=== PATIENT | female | born 1960 | race Two or more races ===

== ENCOUNTER 2017-01-29 08:47 | Emergency (ER) | payer MEDICAID, OTHER ==
[~2017-01-29] VITALS: Ht 149.9 cm; Wt 97.5 kg
[~2017-01-29 08:47] MED LIST: DOC100C PO; FLUT250M2 INH; FURO20TA3 PO; GABA-497 PO; GEMF600T3 PO; HEPA50009 SUBCUT; INSUINJ; IPRASOL39 NEB; LIS5T PO; LORA-654 PO; MAGN400S25 PO; METO25TA62 PO; MONT10TA34 PO; NOR10T PO; OMEP20TA44 PO; PANT1INJ3 PO; PAR20T PO; POT20T PO; PRAV20TA3 PO; SENN-58 PO; SIMV-8 PO; SUCR1TAB38 PO; ZOLP5TAB5 PO
[2017-01-29 09:54] LABS: Basophils # (auto) 0.1 uL; Basophils % (auto) 0.5 % (0.0-2.0); Eosinophils # (auto) 0.2 uL; Eosinophils % (auto) 1.6 % (0.0-7.0); Hematocrit 40.1 % (36.0-46.0); Hemoglobin 13.9 g/dL (12.2-16.2); Lymphocytes # (auto) 1.8 uL; Lymphocytes % (auto) 12.3 % (10.0-50.0); Mean Corpuscular Hemoglobin 31.9 pg (28.0-32.0); Mean Corpuscular Hgb Conc. 34.6 g/dL (32.0-36.0); Mean Corpuscular Volume 92.3 fL (80.0-100.0); Mean Platelet Volume 8.1 fL (6.9-10.8); Monocytes # (auto) 0.9 uL; Monocytes % (auto) 6.2 % (0.0-12.0); Neutrophils # (auto) 11.5 uL; Neutrophils % (auto) 79.4 % (37.0-80.0); Platelet Count (auto) 259 10^3/uL (140-450); White Blood Cell 14.4 10^3/uL (4.4-10.8)
[2017-01-29 10:17] LABS: Albumin 3.3 g/dL (3.4-5.0); BUN/Creatinine Ratio 25.6; Bilirubin, Total 0.5 mg/dL (0.2-1.0); Calcium 8.8 mg/dL (8.5-10.1); Potassium 4.5 mmol/L (3.5-5.1); Total Protein 8.5 g/dL (6.4-8.2)
[2017-01-29 11:41] LABS: Urine Bilirubin Negative (Negative); Urine Blood Negative /uL (Negative); Urine Color Yellow (Yellow); Urine Glucose 4+ mg/dL (Normal); Urine Ketone 1+ (Negative); Urine Mucus FEW (None Seen); Urine Nitrite Negative (Negative); Urine RBC 1 /hpf (0 - 4); Urine Squamous Epithelial Cell FEW /hpf (<5); Urine pH 5.5 (5.0-8.0)
[2017-01-29] MEDS ORDERED: SODIUM CHLORIDE 0.9% 1,000 ML IVB ONE (12:18)
[2017-01-29] MEDS ORDERED: InsuLIN REG 1unit/0.01ml Soln (100units/ml) IV ONE (12:30)
[2017-01-29] MEDS ORDERED: ONDANSETRON HCL 4 MG/2 ML VIAL IV ONE (12:30)
[2017-01-29 12:53] LABS: Magnesium 1.5 mg/dL (1.6-2.6)
[2017-01-29 13:41] VITALS: BP 154/94
[2017-01-29] MEDS ORDERED: KETOROLAC TROMETH 30 MG/ML 1ML VIAL IV ONE (14:00)
== END 2017-01-29 14:15 | disposition home or self-care (01) ==
LOC: EDUNIT# 08:47 → EDBD 08:47 → ER 08:47
DX: A05.9 Bacterial foodborne intoxication, unspecified (principal); J44.9 Chronic obstructive pulmonary disease, unspecified; I25.10 Atherosclerotic heart disease of native coronary artery without angina pectoris; I11.0 Hypertensive heart disease with heart failure; I50.9 Heart failure, unspecified; E78.5 Hyperlipidemia, unspecified; E11.65 Type 2 diabetes mellitus with hyperglycemia; E66.01 Morbid (severe) obesity due to excess calories; E83.42 Hypomagnesemia; E44.1 Mild protein-calorie malnutrition; Z68.41 Body mass index [BMI] 40.0-44.9, adult
CPT/HCPCS: 36415; 74176; 80053; 81001; 82962; 83690; 83735; 84443; 85025; 93005; 96361; 96374; 96375; 99285; J1815; J1885; J2405; J7030

== ENCOUNTER 2017-10-18 22:06 | Inpatient (IN) | payer MEDICAID ==
[~2017-10-18] VITALS: Ht 149.9 cm; Wt 140.8 kg
[~2017-10-18 22:06] MED LIST changes: -GABA-497 PO; +GABA300C10 PO
[2017-10-19] MEDS ORDERED: NALBUPHINE HCL 10 MG/1ml INJECTION IV ONE (01:00)
[2017-10-19] MEDS ORDERED: ONDANSETRON HCL 4 MG/2 ML VIAL IV ONE (01:00)
[2017-10-19] MEDS ORDERED: cefTRIAXone 1GM/10ml IVPUSH 10 ML IV ONE (01:00)
[2017-10-19] MEDS ORDERED: VANCOMYCIN 1GM/250ML 250 ML IV ONE (01:00)
[2017-10-19 01:41] LABS: Basophils # (auto) 0 uL; Basophils % (auto) 0.5 % (0.0-2.0); Eosinophils # (auto) 0.3 uL; Eosinophils % (auto) 3.2 % (0.0-7.0); Hematocrit 38.6 % (36.0-46.0); Hemoglobin 13.3 g/dL (12.2-16.2); Lymphocytes # (auto) 2.8 uL; Lymphocytes % (auto) 36.2 % (10.0-50.0); Mean Corpuscular Hgb Conc. 34.5 g/dL (32.0-36.0); Mean Corpuscular Volume 95.5 fL (80.0-100.0); Monocytes # (auto) 0.5 uL; Monocytes % (auto) 6.8 % (0.0-12.0); Neutrophils # (auto) 4.2 uL; Neutrophils % (auto) 53.3 % (37.0-80.0); Nucleated Red Blood Cells % 0.1 %; Platelet Count (auto) 190 10^3/uL (140-450); Red Blood Cells 4.04 10^6/uL (4.0-5.20); Red Cell Distribution Width 14.8 % (11.8-14.3); White Blood Cell 7.8 10^3/uL (4.4-10.8)
[2017-10-19 01:53] LABS: INR 1.07 (0.9-1.15); Partial Thromboplastin Time 27.4 sec (23.78-33.04); Prothrombin Time 11.4 sec (9.27-12.13)
[2017-10-19 01:58] LABS: Alanine Aminotransferase 56 U/L (13-56); Albumin 2.9 g/dL (3.4-5.0); Anion Gap 8 (5-15); Aspartate Aminotransferase 56 U/L (15-37); BUN/Creatinine Ratio 18.1; Blood Urea Nitrogen 13 mg/dL (7-18); Calcium 7.7 mg/dL (8.5-10.1); Carbon Dioxide 26 mmol/L (21-32); Chloride 109 mmol/L (98-107); GFR African American 107 mL/min; GFR Non-African American 89 mL/min; Glucose 150 mg/dL (74-106); Potassium 3.4 mmol/L (3.5-5.1); Sodium 143 mmol/L (136-145)
[2017-10-19] MEDS ORDERED: FLUCONAZOLE 200MG/100ML 100 ML IV ONE (02:00)
[2017-10-19 02:03] LABS: Alkaline Phosphatase 163 U/L (45-117); Bilirubin, Total 0.5 mg/dL (0.2-1.0); Total Protein 7.5 g/dL (6.4-8.2)
[2017-10-19] MEDS ORDERED: DEXTROSE (50%) 50ML SYRG IV PRN (03:45)
[2017-10-19] MEDS ORDERED: HYDROcodone-ACET 5/325MG TAB PO PRN (03:45)
[2017-10-19] MEDS ORDERED: DOCUSATE SOD 100 MG CAP PO PRN (03:45)
[2017-10-19 05:30] VITALS: BP 159/73
[2017-10-19] MEDS: ACCU-CHEK COMFORT CURVE STRIP VI SCH ×4 (06:00→23:34)
[2017-10-19] MEDS: CLINDAMYCIN 600MG IV 50 ML IV SCH ×3 (06:40→23:04)
[2017-10-19] MEDS: InsuLIN REG 1unit/0.01ml Soln (100units/ml) SC SCH ×4 (06:41→23:46)
[2017-10-19 09:00] VITALS: BP 143/72
[2017-10-19] MEDS: FUROSEMIDE 20 MG TAB PO SCH (10:00)
[2017-10-19] MEDS ORDERED: KETOCONAZOLE 2 % TOPICAL CREAM 15GM TOP SCH (10:00)
[2017-10-19] MEDS ORDERED: PROMETHAZINE HCL 25 MG/ML 1ML IV PRN (10:30)
[2017-10-19] MEDS: MORPHINE SULFATE 4 MG/ML SYR/VIAL IV PRN ×4 (10:51→23:35)
[2017-10-19] MEDS: PARoxetine 20 MG TAB PO SCH (11:42)
[2017-10-19] MEDS: GEMFIBROZIL 600 MG TAB PO SCH (11:42)
[2017-10-19] MEDS: PANTOPRAZOLE 40 MG TAB PO SCH (11:43)
[2017-10-19] MEDS: FAMOTIDINE 20 MG TAB PO SCH ×2 (11:43→23:04)
[2017-10-19] MEDS: METOPROLOL SUCCINATE XL 50 MG TAB PO SCH (11:44)
[2017-10-19] MEDS: LISINOPRIL 5 MG TAB PO SCH (11:45)
[2017-10-19] MEDS: ENOXAPARIN SOD 40 MG/0.4 ML SYRINGE SC SCH (11:45)
[2017-10-19 13:00] VITALS: BP 142/68
[2017-10-19] MEDS ORDERED: NYSTATIN TOPICAL POWDER 15GM TOP ONE (13:30)
[2017-10-19] MEDS ORDERED: POTASSIUM CHL 20 Meq TABLET PO ONE (13:30)
[2017-10-19] MEDS: PROMETHAZINE HCL 25 MG/ML 1ML IV PRN ×3 (15:00→23:35)
[2017-10-19 16:59] VITALS: BP 114/63
[2017-10-19 20:10] VITALS: BP 154/85
[2017-10-19 22:00] VITALS: BP 154/85
[2017-10-19] MEDS ORDERED: NYSTATIN TOPICAL POWDER 15GM TOP SCH (22:00)
[2017-10-19] MEDS: MONTELUKAST SODIUM 10 MG TAB PO SCH (23:04)
[2017-10-19] MEDS: PRAVASTATIN SODIUM 20 MG TAB PO SCH (23:04)
[2017-10-20] MEDS: PROMETHAZINE HCL 25 MG/ML 1ML IV PRN ×5 (03:45→21:46)
[2017-10-20] MEDS: MORPHINE SULFATE 4 MG/ML SYR/VIAL IV PRN ×2 (03:45→07:56)
[2017-10-20 05:00] VITALS: BP 118/54
[2017-10-20 05:54] LABS: Basophils # (auto) 0.1 uL; Basophils % (auto) 0.6 % (0.0-2.0); Eosinophils # (auto) 0.3 uL; Hematocrit 41.9 % (36.0-46.0); Hemoglobin 13.7 g/dL (12.2-16.2); Lymphocytes # (auto) 2.1 uL; Lymphocytes % (auto) 22.1 % (10.0-50.0); Mean Corpuscular Hemoglobin 31.9 pg (28.0-32.0); Mean Corpuscular Hgb Conc. 32.6 g/dL (32.0-36.0); Mean Corpuscular Volume 97.6 fL (80.0-100.0); Monocytes # (auto) 0.3 uL; Monocytes % (auto) 3.2 % (0.0-12.0); Neutrophils # (auto) 6.8 uL; Neutrophils % (auto) 71.1 % (37.0-80.0); Platelet Count (auto) 224 10^3/uL (140-450); Red Blood Cells 4.29 10^6/uL (4.0-5.20); Red Cell Distribution Width 15.1 % (11.8-14.3); White Blood Cell 9.5 10^3/uL (4.4-10.8)
[2017-10-20] MEDS: ACCU-CHEK COMFORT CURVE STRIP VI SCH ×3 (06:00→18:00)
[2017-10-20] MEDS: InsuLIN REG 1unit/0.01ml Soln (100units/ml) SC SCH ×3 (06:00→18:00)
[2017-10-20] MEDS: CLINDAMYCIN 600MG IV 50 ML IV SCH ×3 (06:00→23:25)
[2017-10-20 06:05] LABS: Albumin 2.5 g/dL (3.4-5.0); BUN/Creatinine Ratio 8.8; Bilirubin, Total 0.7 mg/dL (0.2-1.0); Calcium 7.5 mg/dL (8.5-10.1); Potassium 3.9 mmol/L (3.5-5.1)
[2017-10-20 09:00] VITALS: BP 120/77
[2017-10-20] MEDS ORDERED: cefTRIAXone 1GM/10ml IVPUSH 10 ML IV SCH (09:00)
[2017-10-20] MEDS: diphenhdrAMINE HCL 50 MG/1 ML VL IV PRN ×2 (09:17→19:56)
[2017-10-20] MEDS: FUROSEMIDE 20 MG TAB PO SCH (10:00)
[2017-10-20] MEDS: POTASSIUM CHL 20 Meq TABLET PO SCH (10:00)
[2017-10-20] MEDS: FAMOTIDINE 20 MG TAB PO SCH (10:00)
[2017-10-20] MEDS: ENOXAPARIN SOD 40 MG/0.4 ML SYRINGE SC SCH (10:00)
[2017-10-20] MEDS: PARoxetine 20 MG TAB PO SCH (10:03)
[2017-10-20] MEDS: PANTOPRAZOLE 40 MG TAB PO SCH (10:03)
[2017-10-20] MEDS: GEMFIBROZIL 600 MG TAB PO SCH (10:03)
[2017-10-20] MEDS: METOPROLOL SUCCINATE XL 50 MG TAB PO SCH (10:04)
[2017-10-20] MEDS: LISINOPRIL 5 MG TAB PO SCH (10:05)
[2017-10-20] MEDS: NYSTATIN TOPICAL POWDER 15GM TOP SCH ×3 (10:12→23:25)
[2017-10-20] MEDS: NALBUPHINE HCL 10 MG/1ml INJECTION IV PRN ×3 (12:24→21:46)
[2017-10-20 13:00] VITALS: BP 109/60
[2017-10-20 17:00] VITALS: BP 95/45
[2017-10-20] MEDS: PRAVASTATIN SODIUM 20 MG TAB PO SCH (21:45)
[2017-10-20] MEDS: MONTELUKAST SODIUM 10 MG TAB PO SCH (21:46)
[2017-10-20 21:49] VITALS: BP 109/55
[2017-10-21] MEDS: InsuLIN REG 1unit/0.01ml Soln (100units/ml) SC SCH ×4 (00:11→17:41)
[2017-10-21] MEDS: ACCU-CHEK COMFORT CURVE STRIP VI SCH ×4 (00:11→17:41)
[2017-10-21] MEDS: diphenhdrAMINE HCL 50 MG/1 ML VL IV PRN ×3 (03:15→19:48)
[2017-10-21] MEDS: NALBUPHINE HCL 10 MG/1ml INJECTION IV PRN ×4 (03:15→19:48)
[2017-10-21 05:00] VITALS: BP 97/52
[2017-10-21] MEDS: PROMETHAZINE HCL 25 MG/ML 1ML IV PRN ×2 (05:20→17:41)
[2017-10-21] MEDS: CLINDAMYCIN 600MG IV 50 ML IV SCH ×3 (05:54→22:23)
[2017-10-21] MEDS: NYSTATIN TOPICAL POWDER 15GM TOP SCH ×3 (06:09→22:24)
[2017-10-21 08:00] VITALS: BP 103/56
[2017-10-21 08:10] LABS: Basophils # (auto) 0.1 uL; Basophils % (auto) 0.5 % (0.0-2.0); Eosinophils # (auto) 0.6 uL; Eosinophils % (auto) 3.4 % (0.0-7.0); Hematocrit 42.5 % (36.0-46.0); Hemoglobin 14.3 g/dL (12.2-16.2); Lymphocytes # (auto) 3.1 uL; Lymphocytes % (auto) 17.6 % (10.0-50.0); Mean Corpuscular Hemoglobin 32.4 pg (28.0-32.0); Mean Corpuscular Hgb Conc. 33.5 g/dL (32.0-36.0); Mean Corpuscular Volume 96.6 fL (80.0-100.0); Monocytes # (auto) 0.8 uL; Monocytes % (auto) 4.8 % (0.0-12.0); Neutrophils # (auto) 13.1 uL; Neutrophils % (auto) 73.7 % (37.0-80.0); Platelet Count (auto) 254 10^3/uL (140-450); Red Blood Cells 4.41 10^6/uL (4.0-5.20); Red Cell Distribution Width 15.5 % (11.8-14.3); White Blood Cell 17.7 10^3/uL (4.4-10.8)
[2017-10-21 08:28] LABS: BUN/Creatinine Ratio 11.3; Calcium 7.3 mg/dL (8.5-10.1); Potassium 3.9 mmol/L (3.5-5.1)
[2017-10-21] MEDS ORDERED: cefTRIAXone 1GM/10ml IVPUSH 10 ML IV SCH (09:00)
[2017-10-21] MEDS: POTASSIUM CHL 20 Meq TABLET PO SCH (10:00)
[2017-10-21] MEDS: METOPROLOL SUCCINATE XL 50 MG TAB PO SCH (10:00)
[2017-10-21] MEDS: ENOXAPARIN SOD 40 MG/0.4 ML SYRINGE SC SCH ×2 (10:00→22:00)
[2017-10-21] MEDS: FUROSEMIDE 20 MG TAB PO SCH (10:00)
[2017-10-21] MEDS: LISINOPRIL 5 MG TAB PO SCH (10:00)
[2017-10-21] MEDS: GEMFIBROZIL 600 MG TAB PO SCH (10:12)
[2017-10-21] MEDS: PARoxetine 20 MG TAB PO SCH (10:12)
[2017-10-21] MEDS: PANTOPRAZOLE 40 MG TAB PO SCH (10:12)
[2017-10-21] MEDS ORDERED: SODIUM CHLORIDE 0.9% 1,000 ML IV ONE (10:30)
[2017-10-21 12:00] VITALS: BP 100/51
[2017-10-21 17:00] VITALS: BP 95/49
[2017-10-21] MEDS: ACETAMINOPHEN 325 MG TAB PO PRN (19:49)
[2017-10-21 22:00] VITALS: BP 120/58
[2017-10-21] MEDS: PRAVASTATIN SODIUM 20 MG TAB PO SCH (22:23)
[2017-10-21] MEDS: MONTELUKAST SODIUM 10 MG TAB PO SCH (22:24)
[2017-10-22] MEDS: NALBUPHINE HCL 10 MG/1ml INJECTION IV PRN ×6 (00:06→22:29)
[2017-10-22] MEDS: ACCU-CHEK COMFORT CURVE STRIP VI SCH ×5 (00:06→23:09)
[2017-10-22] MEDS: InsuLIN REG 1unit/0.01ml Soln (100units/ml) SC SCH ×5 (00:06→23:12)
[2017-10-22] MEDS: diphenhdrAMINE HCL 50 MG/1 ML VL IV PRN ×2 (00:46→16:34)
[2017-10-22 05:00] VITALS: BP 113/51
[2017-10-22] MEDS: CLINDAMYCIN 600MG IV 50 ML IV SCH ×3 (06:36→22:00)
[2017-10-22] MEDS: NYSTATIN TOPICAL POWDER 15GM TOP SCH (06:36)
[2017-10-22] MEDS: ACETAMINOPHEN 325 MG TAB PO PRN (06:37)
[2017-10-22] MEDS: PROMETHAZINE HCL 25 MG/ML 1ML IV PRN (06:49)
[2017-10-22 07:46] LABS: Basophils # (auto) 0 uL; Basophils % (auto) 0.2 % (0.0-2.0); Eosinophils # (auto) 0.8 uL; Eosinophils % (auto) 5.2 % (0.0-7.0); Hematocrit 37.8 % (36.0-46.0); Hemoglobin 12.7 g/dL (12.2-16.2); Lymphocytes # (auto) 2.4 uL; Lymphocytes % (auto) 15.8 % (10.0-50.0); Mean Corpuscular Hemoglobin 32.7 pg (28.0-32.0); Mean Corpuscular Hgb Conc. 33.6 g/dL (32.0-36.0); Mean Corpuscular Volume 97.4 fL (80.0-100.0); Monocytes # (auto) 0.9 uL; Monocytes % (auto) 5.6 % (0.0-12.0); Neutrophils # (auto) 11.2 uL; Neutrophils % (auto) 73.2 % (37.0-80.0); Platelet Count (auto) 204 10^3/uL (140-450); Red Blood Cells 3.88 10^6/uL (4.0-5.20); Red Cell Distribution Width 15.5 % (11.8-14.3); White Blood Cell 15.3 10^3/uL (4.4-10.8)
[2017-10-22 07:48] LABS: Urine Bacteria NONE SEEN /hpf (None Seen); Urine Blood Negative /uL (Negative); Urine Specific Gravity 1.012 (1.001-1.035); Urine WBC 8 /hpf (0 - 5)
[2017-10-22 07:53] LABS: BUN/Creatinine Ratio 15.2; Potassium 3.7 mmol/L (3.5-5.1)
[2017-10-22 09:00] VITALS: BP 101/43
[2017-10-22] MEDS ORDERED: methylPREDNISolone ACETATE 80 MG/ML VL IM ONE (09:45)
[2017-10-22] MEDS: ENOXAPARIN SOD 40 MG/0.4 ML SYRINGE SC SCH ×2 (10:00→22:00)
[2017-10-22] MEDS: METOPROLOL SUCCINATE XL 50 MG TAB PO SCH (10:00)
[2017-10-22] MEDS: LISINOPRIL 5 MG TAB PO SCH (10:00)
[2017-10-22] MEDS: PANTOPRAZOLE 40 MG TAB PO SCH (11:27)
[2017-10-22] MEDS: GEMFIBROZIL 600 MG TAB PO SCH (11:27)
[2017-10-22] MEDS: FEXOFENADINE HCL 60 MG TAB PO SCH ×2 (11:27→22:29)
[2017-10-22] MEDS: PARoxetine 20 MG TAB PO SCH (11:28)
[2017-10-22] MEDS: TRIAMCINOLONE ACET0.5% TOPICAL CRE 15GM TOP SCH ×2 (11:29→22:40)
[2017-10-22] MEDS: NYSTATIN TOPICAL CREAM 15GM TOP SCH ×2 (11:29→22:40)
[2017-10-22] MEDS ORDERED: ALBUTEROL SULF 2.5 MG/0.5ML(0.5%) NEB SOLN NEB PRN (12:00)
[2017-10-22 13:00] VITALS: BP 144/69
[2017-10-22] MEDS ORDERED: FLUCONAZOLE 200MG/100ML 100 ML IV ONE (15:00)
[2017-10-22 16:35] VITALS: BP 103/54
[2017-10-22 22:00] VITALS: BP 107/60
[2017-10-22] MEDS: PRAVASTATIN SODIUM 20 MG TAB PO SCH (22:29)
[2017-10-22] MEDS: MONTELUKAST SODIUM 10 MG TAB PO SCH (22:29)
[2017-10-22 23:34] VITALS: BP 107/60
[2017-10-23] MEDS: diphenhdrAMINE HCL 50 MG/1 ML VL IV PRN ×3 (01:44→17:13)
[2017-10-23] MEDS: NALBUPHINE HCL 10 MG/1ml INJECTION IV PRN ×6 (02:54→23:55)
[2017-10-23 05:00] VITALS: BP 115/58
[2017-10-23] MEDS: CLINDAMYCIN 600MG IV 50 ML IV SCH ×3 (05:26→21:23)
[2017-10-23] MEDS: ACCU-CHEK COMFORT CURVE STRIP VI SCH ×5 (05:26→23:47)
[2017-10-23] MEDS: InsuLIN REG 1unit/0.01ml Soln (100units/ml) SC SCH ×4 (05:27→23:47)
[2017-10-23 08:00] VITALS: BP 118/58
[2017-10-23 08:26] VITALS: BP 118/58
[2017-10-23] MEDS ORDERED: DEXTROSE (50%) 50ML SYRG IV PRN ×2 (09:00→23:15)
[2017-10-23] MEDS: FEXOFENADINE HCL 60 MG TAB PO SCH ×2 (09:13→21:23)
[2017-10-23] MEDS: PARoxetine 20 MG TAB PO SCH (09:14)
[2017-10-23] MEDS: METOPROLOL SUCCINATE XL 50 MG TAB PO SCH (09:14)
[2017-10-23] MEDS: LISINOPRIL 5 MG TAB PO SCH (09:14)
[2017-10-23] MEDS: PANTOPRAZOLE 40 MG TAB PO SCH (09:14)
[2017-10-23] MEDS: FLUCONAZOLE 200MG/100ML 100 ML IV SCH (09:15)
[2017-10-23] MEDS: NYSTATIN TOPICAL CREAM 15GM TOP SCH ×2 (09:15→22:26)
[2017-10-23] MEDS: TRIAMCINOLONE ACET0.5% TOPICAL CRE 15GM TOP SCH ×2 (09:15→22:26)
[2017-10-23] MEDS: ENOXAPARIN SOD 40 MG/0.4 ML SYRINGE SC SCH ×2 (09:15→21:24)
[2017-10-23] MEDS: GEMFIBROZIL 600 MG TAB PO SCH (10:21)
[2017-10-23 10:22] LABS: Basophils # (auto) 0 uL; Basophils % (auto) 0.1 % (0.0-2.0); Eosinophils # (auto) 0.1 uL; Hematocrit 37.8 % (36.0-46.0); Hemoglobin 12.4 g/dL (12.2-16.2); Lymphocytes # (auto) 1.7 uL; Lymphocytes % (auto) 13.2 % (10.0-50.0); Mean Corpuscular Hemoglobin 31.7 pg (28.0-32.0); Mean Corpuscular Hgb Conc. 32.9 g/dL (32.0-36.0); Mean Corpuscular Volume 96.3 fL (80.0-100.0); Monocytes # (auto) 0.6 uL; Monocytes % (auto) 4.5 % (0.0-12.0); Neutrophils # (auto) 10.4 uL; Neutrophils % (auto) 81.2 % (37.0-80.0); Platelet Count (auto) 203 10^3/uL (140-450); Red Blood Cells 3.92 10^6/uL (4.0-5.20); Red Cell Distribution Width 15.3 % (11.8-14.3); White Blood Cell 12.8 10^3/uL (4.4-10.8)
[2017-10-23 10:43] LABS: BUN/Creatinine Ratio 12.7; Calcium 7.9 mg/dL (8.5-10.1)
[2017-10-23] MEDS: methylPREDNISolone SOD SUCC 40 MG/ML VL IV SCH ×3 (11:50→23:46)
[2017-10-23 11:58] VITALS: BP 126/58
[2017-10-23 16:13] VITALS: BP 130/71
[2017-10-23] MEDS: PRAVASTATIN SODIUM 20 MG TAB PO SCH (21:23)
[2017-10-23] MEDS: MONTELUKAST SODIUM 10 MG TAB PO SCH (21:23)
[2017-10-23 22:00] VITALS: BP 137/71
[2017-10-23] MEDS ORDERED: InsuLIN REG 1unit/0.01ml Soln (100units/ml) SC SCH (22:00)
[2017-10-24] MEDS: ACCU-CHEK COMFORT CURVE STRIP VI SCH ×5 (03:25→20:49)
[2017-10-24] MEDS: diphenhdrAMINE HCL 50 MG/1 ML VL IV PRN ×2 (03:25→13:14)
[2017-10-24] MEDS: InsuLIN REG 1unit/0.01ml Soln (100units/ml) SC SCH ×5 (03:32→20:48)
[2017-10-24] MEDS: NALBUPHINE HCL 10 MG/1ml INJECTION IV PRN ×5 (04:04→20:49)
[2017-10-24 05:00] VITALS: BP 129/64
[2017-10-24] MEDS: CLINDAMYCIN 600MG IV 50 ML IV SCH (05:04)
[2017-10-24] MEDS: methylPREDNISolone SOD SUCC 40 MG/ML VL IV SCH ×2 (05:09→17:16)
[2017-10-24 05:51] LABS: Basophils # (auto) 0 uL; Basophils % (auto) 0.1 % (0.0-2.0); Eosinophils # (auto) 0 uL; Hematocrit 36.1 % (36.0-46.0); Hemoglobin 12.3 g/dL (12.2-16.2); Lymphocytes # (auto) 1.6 uL; Lymphocytes % (auto) 15.2 % (10.0-50.0); Mean Corpuscular Hemoglobin 33.1 pg (28.0-32.0); Mean Corpuscular Hgb Conc. 34.2 g/dL (32.0-36.0); Mean Corpuscular Volume 96.9 fL (80.0-100.0); Monocytes # (auto) 0.2 uL; Monocytes % (auto) 2.3 % (0.0-12.0); Neutrophils # (auto) 8.9 uL; Neutrophils % (auto) 82.4 % (37.0-80.0); Platelet Count (auto) 202 10^3/uL (140-450); Red Blood Cells 3.73 10^6/uL (4.0-5.20); Red Cell Distribution Width 15.2 % (11.8-14.3); White Blood Cell 10.8 10^3/uL (4.4-10.8)
[2017-10-24 06:05] LABS: BUN/Creatinine Ratio 17.6; Calcium 8.4 mg/dL (8.5-10.1); Potassium 3.7 mmol/L (3.5-5.1)
[2017-10-24 08:00] VITALS: BP 131/67
[2017-10-24 09:00] VITALS: BP 131/67
[2017-10-24] MEDS: FLUCONAZOLE 200MG/100ML 100 ML IV SCH (09:14)
[2017-10-24] MEDS: hydrOXYzine 25 MG TAB or CAP PO PRN ×2 (09:15→17:16)
[2017-10-24] MEDS: FEXOFENADINE HCL 60 MG TAB PO SCH ×2 (09:15→22:45)
[2017-10-24] MEDS: PANTOPRAZOLE 40 MG TAB PO SCH (09:15)
[2017-10-24] MEDS: LISINOPRIL 5 MG TAB PO SCH (09:16)
[2017-10-24] MEDS: PARoxetine 20 MG TAB PO SCH (09:16)
[2017-10-24] MEDS: METOPROLOL SUCCINATE XL 50 MG TAB PO SCH (09:16)
[2017-10-24] MEDS: ENOXAPARIN SOD 40 MG/0.4 ML SYRINGE SC SCH ×2 (09:16→22:00)
[2017-10-24] MEDS ORDERED: NALBUPHINE HCL 10 MG/1ml INJECTION IV PRN (09:30)
[2017-10-24] MEDS: NYSTATIN TOPICAL CREAM 15GM TOP SCH ×2 (09:39→22:49)
[2017-10-24] MEDS: GEMFIBROZIL 600 MG TAB PO SCH (09:39)
[2017-10-24] MEDS: TRIAMCINOLONE ACET0.5% TOPICAL CRE 15GM TOP SCH ×2 (09:39→22:49)
[2017-10-24] MEDS: CALAMINE TOPical LOTION180 ML TOP PRN (11:52)
[2017-10-24] MEDS ORDERED: INSULIN LANTUS (GLARGINE) 1 /0.01ml (100units/ml) SC ONE (12:45)
[2017-10-24 15:44] VITALS: BP 138/96
[2017-10-24 17:35] VITALS: BP 134/69
[2017-10-24 21:55] VITALS: BP 143/69
[2017-10-24] MEDS: FAMOTIDINE 20 MG TAB PO SCH (22:47)
[2017-10-24] MEDS: MONTELUKAST SODIUM 10 MG TAB PO SCH (22:48)
[2017-10-24] MEDS: PRAVASTATIN SODIUM 20 MG TAB PO SCH (22:48)
[2017-10-24] MEDS: INSULIN LANTUS (GLARGINE) 1 /0.01ml (100units/ml) SC SCH (22:49)
[2017-10-25] MEDS: NALBUPHINE HCL 10 MG/1ml INJECTION IV PRN ×3 (00:50→09:14)
[2017-10-25] MEDS: hydrOXYzine 25 MG TAB or CAP PO PRN ×2 (01:00→21:25)
[2017-10-25] MEDS: InsuLIN REG 1unit/0.01ml Soln (100units/ml) SC SCH ×6 (01:29→20:31)
[2017-10-25] MEDS: ACCU-CHEK COMFORT CURVE STRIP VI SCH ×6 (01:29→20:31)
[2017-10-25 05:48] VITALS: BP 138/66
[2017-10-25] MEDS: methylPREDNISolone SOD SUCC 40 MG/ML VL IV SCH ×2 (06:41→17:16)
[2017-10-25] MEDS: INSULIN LANTUS (GLARGINE) 1 /0.01ml (100units/ml) SC SCH ×2 (06:41→21:27)
[2017-10-25] MEDS: diphenhdrAMINE HCL 50 MG/1 ML VL IV PRN ×2 (07:29→18:09)
[2017-10-25 08:00] VITALS: BP 136/70
[2017-10-25 09:04] VITALS: BP 136/70
[2017-10-25] MEDS: FEXOFENADINE HCL 60 MG TAB PO SCH ×2 (09:14→21:25)
[2017-10-25] MEDS: PARoxetine 20 MG TAB PO SCH (09:14)
[2017-10-25] MEDS: LISINOPRIL 5 MG TAB PO SCH (09:14)
[2017-10-25] MEDS: NYSTATIN TOPICAL CREAM 15GM TOP SCH ×2 (09:15→21:26)
[2017-10-25] MEDS: TRIAMCINOLONE ACET0.5% TOPICAL CRE 15GM TOP SCH ×2 (09:15→21:26)
[2017-10-25] MEDS: FLUCONAZOLE 200MG/100ML 100 ML IV SCH (09:15)
[2017-10-25] MEDS: METOPROLOL SUCCINATE XL 50 MG TAB PO SCH ×2 (09:15→12:46)
[2017-10-25] MEDS: GEMFIBROZIL 600 MG TAB PO SCH (09:15)
[2017-10-25] MEDS: ENOXAPARIN SOD 40 MG/0.4 ML SYRINGE SC SCH ×2 (09:16→21:27)
[2017-10-25] MEDS: FAMOTIDINE 20 MG TAB PO SCH ×2 (09:16→21:25)
[2017-10-25] MEDS: FLUCONAZOLE 100 MG TAB PO SCH (09:36)
[2017-10-25] MEDS: CALAMINE TOPical LOTION180 ML TOP PRN ×2 (09:37→17:51)
[2017-10-25] MEDS ORDERED: ALUM & MAG HYDROX-SIMETH LIQ(MAALOX) 30 ML GT PRN (10:00)
[2017-10-25] MEDS: MORPHINE SULFATE 4 MG/ML SYR/VIAL IV PRN ×3 (12:45→21:26)
[2017-10-25 13:05] VITALS: BP 148/74
[2017-10-25 17:43] VITALS: BP 162/79
[2017-10-25] MEDS: MONTELUKAST SODIUM 10 MG TAB PO SCH (21:25)
[2017-10-25] MEDS: PRAVASTATIN SODIUM 20 MG TAB PO SCH (21:25)
[2017-10-25 22:00] VITALS: BP 136/72
[2017-10-25] MEDS ORDERED: INSULIN LANTUS (GLARGINE) 1 /0.01ml (100units/ml) SC SCH (22:00)
[2017-10-26] MEDS: ACCU-CHEK COMFORT CURVE STRIP VI SCH ×4 (00:52→12:23)
[2017-10-26] MEDS: InsuLIN REG 1unit/0.01ml Soln (100units/ml) SC SCH ×5 (00:52→12:29)
[2017-10-26] MEDS: MORPHINE SULFATE 4 MG/ML SYR/VIAL IV PRN ×2 (02:00→06:40)
[2017-10-26 02:44] VITALS: BP 136/72
[2017-10-26 04:51] VITALS: BP 147/74
[2017-10-26] MEDS: methylPREDNISolone SOD SUCC 40 MG/ML VL IV SCH (06:40)
[2017-10-26] MEDS: hydrOXYzine 25 MG TAB or CAP PO PRN (06:41)
[2017-10-26] MEDS: INSULIN LANTUS (GLARGINE) 1 /0.01ml (100units/ml) SC SCH (07:06)
[2017-10-26 07:50] VITALS: BP 179/71
[2017-10-26] MEDS: FEXOFENADINE HCL 60 MG TAB PO SCH (08:28)
[2017-10-26] MEDS: FLUCONAZOLE 100 MG TAB PO SCH (08:28)
[2017-10-26] MEDS: GEMFIBROZIL 600 MG TAB PO SCH (08:29)
[2017-10-26] MEDS: PARoxetine 20 MG TAB PO SCH (08:30)
[2017-10-26] MEDS: FAMOTIDINE 20 MG TAB PO SCH (08:30)
[2017-10-26] MEDS: LISINOPRIL 5 MG TAB PO SCH (08:30)
[2017-10-26] MEDS: ENOXAPARIN SOD 40 MG/0.4 ML SYRINGE SC SCH (08:33)
[2017-10-26] MEDS: METOPROLOL SUCCINATE XL 50 MG TAB PO SCH (09:24)
[2017-10-26] MEDS ORDERED: metFORMIN HYDROCHLORIDE 500 MG TAB PO ONE (10:15)
[2017-10-26] MEDS ORDERED: TRI05TP TOP (10:17)
[2017-10-26 11:33] VITALS: BP 179/71
[2017-10-26] MEDS ORDERED: HYDROcodone-ACET 10/325MG TAB PO ONE (11:45)
[2017-10-26 12:35] VITALS: BP 162/66
== END 2017-10-26 14:40 | disposition home health service (06) | DRG 383 ==
LOC: ER 22:23 → CENTRAL 22:24
PROVIDERS: ADMIT Nurse Practitioner; ATTEND Internal Medicine
DX: L03.115 Cellulitis of right lower limb (principal); I11.0 Hypertensive heart disease with heart failure; E44.0 Moderate protein-calorie malnutrition; Z68.44 Body mass index [BMI] 60.0-69.9, adult; I50.9 Heart failure, unspecified; E11.65 Type 2 diabetes mellitus with hyperglycemia; J44.9 Chronic obstructive pulmonary disease, unspecified; B37.2 Candidiasis of skin and nail; J45.909 Unspecified asthma, uncomplicated; T78.49XA Other allergy, initial encounter; L03.116 Cellulitis of left lower limb; E66.01 Morbid (severe) obesity due to excess calories; Z88.1 Allergy status to other antibiotic agents; Z88.8 Allergy status to other drugs, medicaments and biological substances; E03.9 Hypothyroidism, unspecified; E78.5 Hyperlipidemia, unspecified; Z83.3 Family history of diabetes mellitus; Z82.49 Family history of ischemic heart disease and other diseases of the circulatory system; Z82.3 Family history of stroke; Z79.4 Long term (current) use of insulin; L03.313 Cellulitis of chest wall; K21.9 Gastro-esophageal reflux disease without esophagitis; Z87.442 Personal history of urinary calculi; T38.0X5A Adverse effect of glucocorticoids and synthetic analogues, initial encounter; Y92.89 Other specified places as the place of occurrence of the external cause; X58.XXXA Exposure to other specified factors, initial encounter; Z90.49 Acquired absence of other specified parts of digestive tract; Z86.14 Personal history of Methicillin resistant Staphylococcus aureus infection; Z80.9 Family history of malignant neoplasm, unspecified; E87.6 Hypokalemia
CPT/HCPCS: 36415; 71045; 80048; 80053; 81001; 82962; 83036; 84484; 85025; 85610; 85652; 85730; 87040; 87081; 87086; 93005; 97110; 97116; 97163; 97530; A6257; J0696; J1450; J1815; J3490

== ENCOUNTER 2017-12-11 16:21 | Emergency (ER) | payer MEDICAID ==
[~2017-12-11] VITALS: Ht 149.9 cm; Wt 136.1 kg
[~2017-12-11 16:21] MED LIST changes: -DOC100C PO; -FLUT250M2 INH; -FURO20TA3 PO; -GEMF600T3 PO; -HEPA50009 SUBCUT; -INSUINJ; -LORA-654 PO; -MAGN400S25 PO; -OMEP20TA44 PO; -PANT1INJ3 PO; -POT20T PO; -PRAV20TA3 PO; -SENN-58 PO; -SIMV-8 PO; -SUCR1TAB38 PO; +TRI05TP TOP; -ZOLP5TAB5 PO
[2017-12-11 16:29] VITALS: BP 145/82
[2017-12-11] MEDS ORDERED: KETOROLAC TROMETH 60MG/2ML VIAL IM ONE (19:15)
== END 2017-12-11 19:52 | disposition home or self-care (01) ==
LOC: ER 16:21
DX: S01.01XA Laceration without foreign body of scalp, initial encounter (principal); J44.9 Chronic obstructive pulmonary disease, unspecified; E11.22 Type 2 diabetes mellitus with diabetic chronic kidney disease; I13.0 Hypertensive heart and chronic kidney disease with heart failure and stage 1 through stage 4 chronic kidney disease, or unspecified chronic kidney disease; I50.9 Heart failure, unspecified; N18.9 Chronic kidney disease, unspecified; K21.9 Gastro-esophageal reflux disease without esophagitis; E78.5 Hyperlipidemia, unspecified; E07.9 Disorder of thyroid, unspecified; Z90.49 Acquired absence of other specified parts of digestive tract; Z88.1 Allergy status to other antibiotic agents; Z88.8 Allergy status to other drugs, medicaments and biological substances; Z79.899 Other long term (current) drug therapy; W20.8XXA Other cause of strike by thrown, projected or falling object, initial encounter; Y93.89 Activity, other specified; Y99.8 Other external cause status; Y92.098 Other place in other non-institutional residence as the place of occurrence of the external cause
CPT/HCPCS: 12031; 70450; 96372; 99284; J1885

== ENCOUNTER 2017-12-20 15:13 | Emergency (ER) | payer MEDICAID ==
[~2017-12-20] VITALS: Ht 149.9 cm; Wt 136.1 kg
[2017-12-20 15:37] VITALS: BP 156/85
== END 2017-12-20 16:00 | disposition home or self-care (01) ==
LOC: ER 15:18
DX: S01.81XD Laceration without foreign body of other part of head, subsequent encounter (principal); E11.22 Type 2 diabetes mellitus with diabetic chronic kidney disease; I13.0 Hypertensive heart and chronic kidney disease with heart failure and stage 1 through stage 4 chronic kidney disease, or unspecified chronic kidney disease; N18.9 Chronic kidney disease, unspecified; J44.9 Chronic obstructive pulmonary disease, unspecified; K21.9 Gastro-esophageal reflux disease without esophagitis; E78.5 Hyperlipidemia, unspecified; X58.XXXD Exposure to other specified factors, subsequent encounter; Z90.49 Acquired absence of other specified parts of digestive tract; Z88.1 Allergy status to other antibiotic agents

== ENCOUNTER 2018-02-27 10:22 | Inpatient (IN) | payer MEDICAID ==
[~2018-02-27] VITALS: Ht 160 cm; Wt 145.0 kg
[2018-02-27] MEDS ORDERED: SODIUM CHLORIDE 0.9% 1,000 ML IV ONE (10:37)
[2018-02-27] MEDS ORDERED: HYDROmorphone HCL 2 MG/ML VL IV ONE ×2 (10:45→13:45)
[2018-02-27] MEDS ORDERED: PROMETHAZINE HCL 25 MG/ML 1ML ONE (11:27)
[2018-02-27] MEDS ORDERED: PROMETHAZINE HCL 25 MG/ML 1ML IM ONE (11:30)
[2018-02-27 12:00] LABS: Basophils # (auto) 0 uL; Basophils % (auto) 0.3 % (0.0-2.0); Eosinophils # (auto) 0.1 uL; Eosinophils % (auto) 1.1 % (0.0-7.0); Hematocrit 48.4 % (36.0-46.0); Hemoglobin 15.8 g/dL (12.2-16.2); Lymphocytes # (auto) 1.9 uL; Lymphocytes % (auto) 16.4 % (10.0-50.0); Mean Corpuscular Hemoglobin 30.8 pg (28.0-32.0); Mean Corpuscular Hgb Conc. 32.7 g/dL (32.0-36.0); Mean Corpuscular Volume 94.3 fL (80.0-100.0); Monocytes # (auto) 0.6 uL; Monocytes % (auto) 5.1 % (0.0-12.0); Neutrophils # (auto) 9.1 uL; Neutrophils % (auto) 77.1 % (37.0-80.0); Platelet Count (auto) 156 10^3/uL (140-450); Red Blood Cells 5.13 10^6/uL (4.0-5.20); Red Cell Distribution Width 14.3 % (11.8-14.3); White Blood Cell 11.7 10^3/uL (4.4-10.8)
[2018-02-27 12:16] LABS: INR 1.11 (0.9-1.15); Partial Thromboplastin Time 24.4 sec (23.78-33.04); Prothrombin Time 11.8 sec (9.27-12.13)
[2018-02-27 14:37] LABS: Calcium 9.3 mg/dL (8.5-10.1); Magnesium 1.8 mg/dL (1.6-2.6)
[2018-02-27 14:44] LABS: Albumin 3.4 g/dL (3.4-5.0); BUN/Creatinine Ratio 14.9; Bilirubin, Total 0.7 mg/dL (0.2-1.0); Total Protein 7.8 g/dL (6.4-8.2)
[2018-02-27] MEDS ORDERED: InsuLIN REG 1unit/0.01ml Soln (100units/ml) IV ONE (15:00)
[2018-02-27] MEDS ORDERED: ONDANSETRON HCL 4 MG/2 ML VIAL IV PRN (15:45)
[2018-02-27] MEDS ORDERED: NITROGLYCERIN 0.4 MG SL TAB SL PRN (15:45)
[2018-02-27] MEDS ORDERED: IPRATROPIUM BROM 0.5 MG/2.5ML INH SOL NEB PRN (15:45)
[2018-02-27] MEDS ORDERED: MORPHINE SULFATE 4 MG/ML SYR/VIAL IV PRN (15:45)
[2018-02-27] MEDS ORDERED: ALBUTEROL SULF 2.5 MG/0.5ML(0.5%) NEB SOLN NEB PRN (15:45)
[2018-02-27] MEDS ORDERED: DEXTROSE (50%) 50ML SYRG IV PRN (15:45)
[2018-02-27] MEDS ORDERED: SODIUM CHLORIDE 0.9% 1,000 ML IV SCH ×2 (15:45→16:00)
[2018-02-27 16:18] LABS: CRP High Sensitivity 1.73 mg/dL (< 0.3)
[2018-02-27] MEDS: ACCU-CHEK COMFORT CURVE STRIP VI SCH ×2 (17:15→22:00)
[2018-02-27] MEDS: InsuLIN REG 1unit/0.01ml Soln (100units/ml) SC SCH ×2 (17:30→22:00)
[2018-02-27] MEDS ORDERED: cefTRIAXone 1GM/50ML D5W 50 ML IV SCH (18:00)
[2018-02-27] MEDS: IPRATROPIUM BROM 0.5 MG/2.5ML INH SOL NEB SCH (18:00)
[2018-02-27] MEDS: ALBUTEROL SULF 2.5 MG/0.5ML(0.5%) NEB SOLN NEB SCH (18:00)
[2018-02-27] MEDS: MORPHINE SULFATE 4 MG/ML SYR/VIAL IV PRN ×2 (19:27→23:49)
[2018-02-27 19:44] VITALS: BP 131/75
[2018-02-27 21:30] VITALS: BP 132/52
[2018-02-27] MEDS: GABAPENTIN 300 MG CAP PO SCH (21:35)
[2018-02-27] MEDS: HYDROcodone-ACET 10/325MG TAB PO PRN (21:35)
[2018-02-27] MEDS: NYSTATIN TOPICAL POWDER 15GM TOP SCH (22:36)
[2018-02-28] MEDS: MORPHINE SULFATE 4 MG/ML SYR/VIAL IV PRN ×5 (03:49→21:47)
[2018-02-28 05:00] VITALS: BP 155/66
[2018-02-28] MEDS: ALBUTEROL SULF 2.5 MG/0.5ML(0.5%) NEB SOLN NEB SCH ×4 (06:00→18:00)
[2018-02-28] MEDS: IPRATROPIUM BROM 0.5 MG/2.5ML INH SOL NEB SCH ×4 (06:00→18:00)
[2018-02-28] MEDS: GABAPENTIN 300 MG CAP PO SCH ×3 (06:05→21:44)
[2018-02-28] MEDS: HYDROcodone-ACET 10/325MG TAB PO PRN (06:05)
[2018-02-28] MEDS: ACCU-CHEK COMFORT CURVE STRIP VI SCH ×4 (06:28→21:46)
[2018-02-28] MEDS: InsuLIN REG 1unit/0.01ml Soln (100units/ml) SC SCH ×4 (06:41→21:58)
[2018-02-28 08:23] VITALS: BP 130/73
[2018-02-28] MEDS: PARoxetine 20 MG TAB PO SCH (08:44)
[2018-02-28] MEDS: LISINOPRIL 5 MG TAB PO SCH (08:45)
[2018-02-28] MEDS: MONTELUKAST SODIUM 10 MG TAB PO SCH (08:45)
[2018-02-28] MEDS: NYSTATIN TOPICAL POWDER 15GM TOP SCH ×2 (11:00→22:00)
[2018-02-28 11:45] LABS: Basophils # (auto) 0.1 uL; Basophils % (auto) 0.5 % (0.0-2.0); Eosinophils # (auto) 0.2 uL; Eosinophils % (auto) 1.5 % (0.0-7.0); Hematocrit 41.8 % (36.0-46.0); Lymphocytes # (auto) 3.7 uL; Lymphocytes % (auto) 25.1 % (10.0-50.0); Mean Corpuscular Hemoglobin 30.9 pg (28.0-32.0); Mean Corpuscular Hgb Conc. 33.4 g/dL (32.0-36.0); Mean Corpuscular Volume 92.5 fL (80.0-100.0); Monocytes # (auto) 0.4 uL; Monocytes % (auto) 2.9 % (0.0-12.0); Neutrophils # (auto) 10.2 uL; Platelet Count (auto) 165 10^3/uL (140-450); Red Blood Cells 4.52 10^6/uL (4.0-5.20); Red Cell Distribution Width 14.1 % (11.8-14.3); White Blood Cell 14.6 10^3/uL (4.4-10.8)
[2018-02-28 12:01] LABS: Albumin 2.7 g/dL (3.4-5.0); Calcium 7.9 mg/dL (8.5-10.1); Potassium 4.1 mmol/L (3.5-5.1)
[2018-02-28 12:04] LABS: BUN/Creatinine Ratio 13.4; Bilirubin, Total 0.9 mg/dL (0.2-1.0); Total Protein 6.8 g/dL (6.4-8.2)
[2018-02-28 13:01] VITALS: BP 141/65
[2018-02-28 16:41] VITALS: BP 137/57
[2018-02-28 21:17] LABS: Urine Bacteria NONE SEEN /hpf (None Seen); Urine Blood Negative /uL (Negative); Urine Budding Yeast FEW /hpf (None Seen); Urine Specific Gravity 1.035 (1.001-1.035); Urine WBC 5 /hpf (0 - 5)
[2018-02-28 22:00] VITALS: BP 129/61
[2018-02-28] MEDS ORDERED: INSULIN LANTUS (GLARGINE) 1 /0.01ml (100units/ml) SC SCH (22:00)
[2018-02-28] MEDS: CLOTRIMAZOLE 1 % CREAM 15GM TOP SCH (22:00)
[2018-03-01] MEDS: MORPHINE SULFATE 4 MG/ML SYR/VIAL IV PRN ×5 (02:18→20:10)
[2018-03-01 05:19] VITALS: BP 110/59
[2018-03-01] MEDS: IPRATROPIUM BROM 0.5 MG/2.5ML INH SOL NEB SCH ×4 (06:00→18:00)
[2018-03-01] MEDS: ALBUTEROL SULF 2.5 MG/0.5ML(0.5%) NEB SOLN NEB SCH ×4 (06:00→18:00)
[2018-03-01] MEDS: GABAPENTIN 300 MG CAP PO SCH ×3 (06:03→22:17)
[2018-03-01] MEDS: ACCU-CHEK COMFORT CURVE STRIP VI SCH ×4 (06:04→22:19)
[2018-03-01] MEDS: InsuLIN REG 1unit/0.01ml Soln (100units/ml) SC SCH ×4 (06:19→22:46)
[2018-03-01 08:52] VITALS: BP_SYST 126; BP_SYST 130; BP_DIAS 66; BP_DIAS 67
[2018-03-01] MEDS: PARoxetine 20 MG TAB PO SCH ×2 (09:49→10:01)
[2018-03-01] MEDS: MONTELUKAST SODIUM 10 MG TAB PO SCH (09:56)
[2018-03-01] MEDS: CLOTRIMAZOLE 1 % CREAM 15GM TOP SCH ×2 (09:57→22:18)
[2018-03-01] MEDS: LISINOPRIL 5 MG TAB PO SCH (09:57)
[2018-03-01] MEDS: NYSTATIN TOPICAL POWDER 15GM TOP SCH ×2 (09:57→22:18)
[2018-03-01] MEDS ORDERED: MORPHINE SULFATE 4 MG/ML SYR/VIAL IM ONE (11:30)
[2018-03-01] MEDS ORDERED: LACTULOSE 20Gm/30ML SOLN PO ONE (11:30)
[2018-03-01] MEDS ORDERED: PANTOPRAZOLE 40 MG TAB PO ONE (12:45)
[2018-03-01 12:52] VITALS: BP 130/58
[2018-03-01 16:59] VITALS: BP 142/64
[2018-03-01 21:30] VITALS: BP 133/65
[2018-03-01] MEDS: PANTOPRAZOLE 40 MG TAB PO SCH (22:18)
[2018-03-01] MEDS: INSULIN LANTUS (GLARGINE) 1 /0.01ml (100units/ml) SC SCH (22:45)
[2018-03-02] MEDS: MORPHINE SULFATE 4 MG/ML SYR/VIAL IV PRN ×6 (03:28→23:10)
[2018-03-02 05:01] VITALS: BP 125/74
[2018-03-02] MEDS: GABAPENTIN 300 MG CAP PO SCH ×3 (06:00→21:00)
[2018-03-02] MEDS: InsuLIN REG 1unit/0.01ml Soln (100units/ml) SC SCH ×4 (07:00→23:57)
[2018-03-02] MEDS: ACCU-CHEK COMFORT CURVE STRIP VI SCH ×4 (07:07→23:57)
[2018-03-02 09:00] VITALS: BP 150/69
[2018-03-02] MEDS ORDERED: MIDAZOLAM HCL 1MG/1ML-2 ML VIAL ONE ×2 (09:47→09:49)
[2018-03-02] MEDS ORDERED: PROPOFOL 10 MG/ML 20 ML IV ONE (09:48)
[2018-03-02] MEDS ORDERED: LIDOCAINE 1% INJ PF 5ML AMP ONE (09:48)
[2018-03-02] MEDS ORDERED: diphenhdrAMINE HCL 50 MG/1 ML VL ONE (09:54)
[2018-03-02] MEDS: NYSTATIN TOPICAL POWDER 15GM TOP SCH ×2 (10:00→23:58)
[2018-03-02] MEDS: CLOTRIMAZOLE 1 % CREAM 15GM TOP SCH ×2 (10:00→22:00)
[2018-03-02] MEDS: PARoxetine 20 MG TAB PO SCH (10:00)
[2018-03-02] MEDS: LISINOPRIL 5 MG TAB PO SCH (10:00)
[2018-03-02] MEDS: PANTOPRAZOLE 40 MG TAB PO SCH ×2 (10:00→21:00)
[2018-03-02] MEDS ORDERED: ACCU-CHEK COMFORT CURVE STRIP VI ONE (10:15)
[2018-03-02] MEDS ORDERED: HYDROmorphone HCL 2 MG/ML VL IV PRN (10:15)
[2018-03-02] MEDS: MONTELUKAST SODIUM 10 MG TAB PO SCH (11:12)
[2018-03-02] MEDS: TETRAHYDROZOLINE HCL 0.05% OPTH(EYE)SOL EACHEYE SCH ×3 (12:29→23:56)
[2018-03-02 13:00] VITALS: BP 120/82
[2018-03-02 16:38] VITALS: BP 116/86
[2018-03-02] MEDS: IPRATROPIUM BROM 0.5 MG/2.5ML INH SOL NEB SCH ×3 (18:00→23:58)
[2018-03-02] MEDS: ALBUTEROL SULF 2.5 MG/0.5ML(0.5%) NEB SOLN NEB SCH ×3 (18:00→23:58)
[2018-03-02] MEDS: HYDROcodone-ACET 10/325MG TAB PO PRN (19:35)
[2018-03-02 20:27] VITALS: BP 116/86
[2018-03-02 21:50] VITALS: BP 128/82
[2018-03-02] MEDS: INSULIN LANTUS (GLARGINE) 1 /0.01ml (100units/ml) SC SCH (23:57)
[2018-03-03] MEDS: HYDROcodone-ACET 10/325MG TAB PO PRN ×3 (00:11→17:25)
[2018-03-03] MEDS: MORPHINE SULFATE 4 MG/ML SYR/VIAL IV PRN ×4 (03:08→19:58)
[2018-03-03 05:06] VITALS: BP 140/72
[2018-03-03] MEDS: IPRATROPIUM BROM 0.5 MG/2.5ML INH SOL NEB SCH ×3 (06:00→19:07)
[2018-03-03] MEDS: ALBUTEROL SULF 2.5 MG/0.5ML(0.5%) NEB SOLN NEB SCH ×3 (06:00→19:07)
[2018-03-03] MEDS: ACCU-CHEK COMFORT CURVE STRIP VI SCH ×4 (06:08→21:20)
[2018-03-03] MEDS: TETRAHYDROZOLINE HCL 0.05% OPTH(EYE)SOL EACHEYE SCH ×4 (06:08→21:20)
[2018-03-03] MEDS: GABAPENTIN 300 MG CAP PO SCH ×3 (06:08→21:20)
[2018-03-03] MEDS: InsuLIN REG 1unit/0.01ml Soln (100units/ml) SC SCH ×4 (06:09→21:21)
[2018-03-03 08:29] VITALS: BP 121/65
[2018-03-03] MEDS: PANTOPRAZOLE 40 MG TAB PO SCH ×2 (09:58→21:20)
[2018-03-03] MEDS: PARoxetine 20 MG TAB PO SCH (09:58)
[2018-03-03] MEDS: CLOTRIMAZOLE 1 % CREAM 15GM TOP SCH ×3 (09:59→21:21)
[2018-03-03] MEDS: LISINOPRIL 5 MG TAB PO SCH (09:59)
[2018-03-03] MEDS: MONTELUKAST SODIUM 10 MG TAB PO SCH (09:59)
[2018-03-03] MEDS: NYSTATIN TOPICAL POWDER 15GM TOP SCH ×3 (09:59→21:22)
[2018-03-03 13:00] VITALS: BP 132/82
[2018-03-03] MEDS ORDERED: POLYETHYLENE GLYCOL 17 GM PWDR PO PRN (14:00)
[2018-03-03 16:32] VITALS: BP 129/80
[2018-03-03] MEDS: INSULIN LANTUS (GLARGINE) 1 /0.01ml (100units/ml) SC SCH (21:21)
[2018-03-03 22:00] VITALS: BP 148/81
[2018-03-04] MEDS: MORPHINE SULFATE 4 MG/ML SYR/VIAL IV PRN ×3 (00:10→09:38)
[2018-03-04] MEDS: ALBUTEROL SULF 2.5 MG/0.5ML(0.5%) NEB SOLN NEB SCH (01:00)
[2018-03-04] MEDS: IPRATROPIUM BROM 0.5 MG/2.5ML INH SOL NEB SCH (01:00)
[2018-03-04] MEDS: HYDROcodone-ACET 10/325MG TAB PO PRN ×2 (02:12→12:36)
[2018-03-04 05:02] VITALS: BP 142/95
[2018-03-04] MEDS: TETRAHYDROZOLINE HCL 0.05% OPTH(EYE)SOL EACHEYE SCH ×2 (05:56→13:13)
[2018-03-04] MEDS: GABAPENTIN 300 MG CAP PO SCH ×2 (05:56→14:00)
[2018-03-04] MEDS: ACCU-CHEK COMFORT CURVE STRIP VI SCH ×2 (06:00→13:13)
[2018-03-04] MEDS: InsuLIN REG 1unit/0.01ml Soln (100units/ml) SC SCH ×2 (06:09→13:12)
[2018-03-04 09:01] VITALS: BP 125/70
[2018-03-04] MEDS: PARoxetine 20 MG TAB PO SCH (09:36)
[2018-03-04] MEDS: PANTOPRAZOLE 40 MG TAB PO SCH (09:36)
[2018-03-04] MEDS: LISINOPRIL 5 MG TAB PO SCH (09:37)
[2018-03-04] MEDS: MONTELUKAST SODIUM 10 MG TAB PO SCH (09:37)
[2018-03-04] MEDS: CLOTRIMAZOLE 1 % CREAM 15GM TOP SCH (12:36)
[2018-03-04] MEDS: NYSTATIN TOPICAL POWDER 15GM TOP SCH (12:37)
[2018-03-04 13:00] VITALS: BP 114/75
[2018-03-04 13:54] VITALS: BP 114/75
== END 2018-03-04 15:26 | disposition home or self-care (01) | DRG 241 ==
LOC: EDBD 10:22 → ER 10:22 → OVERFLOW 15:40 → CENTRAL 20:41
PROVIDERS: ADMIT Nurse Practitioner Acute Care; ATTEND Internal Medicine Pulmonary Disease
PROC: 0DB68ZX Excision of Stomach, Via Natural or Artificial Opening Endoscopic, Diagnostic (ICD-10-PCS; principal; 2018-03-02 09:44)
DX: K29.70 Gastritis, unspecified, without bleeding (principal); E44.0 Moderate protein-calorie malnutrition; I11.0 Hypertensive heart disease with heart failure; E11.65 Type 2 diabetes mellitus with hyperglycemia; Z99.81 Dependence on supplemental oxygen; I50.32 Chronic diastolic (congestive) heart failure; E66.01 Morbid (severe) obesity due to excess calories; K52.9 Noninfective gastroenteritis and colitis, unspecified; J44.9 Chronic obstructive pulmonary disease, unspecified; K21.9 Gastro-esophageal reflux disease without esophagitis; K59.00 Constipation, unspecified; L30.4 Erythema intertrigo; H10.9 Unspecified conjunctivitis; E87.1 Hypo-osmolality and hyponatremia; N39.0 Urinary tract infection, site not specified; Z90.49 Acquired absence of other specified parts of digestive tract; Z68.43 Body mass index [BMI] 50.0-59.9, adult; Z88.1 Allergy status to other antibiotic agents; Z88.8 Allergy status to other drugs, medicaments and biological substances
CPT/HCPCS: 36415; 43239; 71045; 74176; 80053; 80061; 81001; 82150; 82962; 83036; 83690; 83735; 84443; 85025; 85610; 85652; 85730; 86141; 87077; 87081; 87186; 87205; 93005; 94640; 94761; 96372; 96374; 96375; 96376; G0378; J0696; J1815; J2250; J2704

== ENCOUNTER 2018-06-07 08:26 | Emergency (ER) | payer MEDICAID ==
[~2018-06-07] VITALS: Ht 149.9 cm; Wt 113.4 kg
[2018-06-07 10:46] LABS: Basophils # (auto) 0 uL; Basophils % (auto) 0.4 % (0.0-2.0); Eosinophils # (auto) 0.2 uL; Eosinophils % (auto) 3.4 % (0.0-7.0); Hematocrit 41.3 % (36.0-46.0); Hemoglobin 13.8 g/dL (12.2-16.2); Lymphocytes # (auto) 2.3 uL; Lymphocytes % (auto) 39.3 % (10.0-50.0); Mean Corpuscular Hemoglobin 30.7 pg (28.0-32.0); Mean Corpuscular Hgb Conc. 33.3 g/dL (32.0-36.0); Mean Corpuscular Volume 92.2 fL (80.0-100.0); Monocytes # (auto) 0.5 uL; Monocytes % (auto) 7.7 % (0.0-12.0); Neutrophils # (auto) 2.9 uL; Neutrophils % (auto) 49.2 % (37.0-80.0); Platelet Count (auto) 184 10^3/uL (140-450); Red Blood Cells 4.48 10^6/uL (4.0-5.20); Red Cell Distribution Width 15.5 % (11.8-14.3); White Blood Cell 5.8 10^3/uL (4.4-10.8)
[2018-06-07 10:58] LABS: Alanine Aminotransferase 67 U/L (13-56); Albumin 2.9 g/dL (3.4-5.0); Anion Gap 8 (5-15); Aspartate Aminotransferase 61 U/L (15-37); BUN/Creatinine Ratio 6.3; Blood Urea Nitrogen 4 mg/dL (7-18); Calcium 8.4 mg/dL (8.5-10.1); Carbon Dioxide 25 mmol/L (21-32); Chloride 105 mmol/L (98-107); GFR African American 125 mL/min; GFR Non-African American 103 mL/min; Glucose 270 mg/dL (74-106); Magnesium 1.7 mg/dL (1.6-2.6); Potassium 3.3 mmol/L (3.5-5.1); Sodium 138 mmol/L (136-145)
[2018-06-07 11:03] LABS: Alkaline Phosphatase 230 U/L (45-117); Bilirubin, Total 0.6 mg/dL (0.2-1.0); Total Protein 7.4 g/dL (6.4-8.2)
[2018-06-07] MEDS ORDERED: ASPirin 81 mg TAB PO ONE (12:00)
[2018-06-07] MEDS ORDERED: NITROGLYCERIN 0.4 MG SL TAB SL ONE (12:00)
[2018-06-07 13:15] VITALS: BP 156/84
== END 2018-06-07 13:35 | disposition home or self-care (01) ==
LOC: ER 08:26 → EDBD 08:26 → ER 13:35
DX: R07.89 Other chest pain (principal); J44.9 Chronic obstructive pulmonary disease, unspecified; K21.9 Gastro-esophageal reflux disease without esophagitis; E11.22 Type 2 diabetes mellitus with diabetic chronic kidney disease; I13.0 Hypertensive heart and chronic kidney disease with heart failure and stage 1 through stage 4 chronic kidney disease, or unspecified chronic kidney disease; N18.9 Chronic kidney disease, unspecified; I50.9 Heart failure, unspecified; Z90.49 Acquired absence of other specified parts of digestive tract; Z87.442 Personal history of urinary calculi; Z88.1 Allergy status to other antibiotic agents; Z79.899 Other long term (current) drug therapy
CPT/HCPCS: 36415; 71045; 80053; 83735; 84484; 85025; 93005

== ENCOUNTER 2018-07-01 18:08 | Inpatient (IN) | payer MEDICAID ==
[~2018-07-01] VITALS: Ht 149.9 cm; Wt 137.9 kg
[2018-07-01] MEDS ORDERED: ALBUTEROL SULF 2.5 MG/0.5ML(0.5%) NEB SOLN NEB ONE (18:30)
[2018-07-01] MEDS ORDERED: IPRATROPIUM BROM 0.5 MG/2.5ML INH SOL NEB ONE (18:30)
[2018-07-01] MEDS ORDERED: SODIUM CHLORIDE 0.9% 1,000 ML IVB ONE (18:56)
[2018-07-01] MEDS ORDERED: ONDANSETRON HCL 4 MG/2 ML VIAL IV ONE (19:00)
[2018-07-01 19:18] LABS: Basophils # (auto) 0.1 uL; Basophils % (auto) 0.5 % (0.0-2.0); Eosinophils # (auto) 0.3 uL; Eosinophils % (auto) 2.7 % (0.0-7.0); Hemoglobin 15.2 g/dL (12.2-16.2); Lymphocytes # (auto) 2.9 uL; Lymphocytes % (auto) 29.4 % (10.0-50.0); Mean Corpuscular Hemoglobin 31.2 pg (28.0-32.0); Mean Corpuscular Hgb Conc. 33.8 g/dL (32.0-36.0); Mean Corpuscular Volume 92.1 fL (80.0-100.0); Monocytes # (auto) 0.5 uL; Monocytes % (auto) 5.1 % (0.0-12.0); Neutrophils # (auto) 6.2 uL; Neutrophils % (auto) 62.3 % (37.0-80.0); Nucleated Red Blood Cells % 0.1 %; Platelet Count (auto) 234 10^3/uL (140-450); Red Blood Cells 4.88 10^6/uL (4.0-5.20); Red Cell Distribution Width 16.3 % (11.8-14.3)
[2018-07-01 19:24] LABS: INR 1.12 (0.9-1.15); Partial Thromboplastin Time 26.4 sec (23.78-33.04); Prothrombin Time 11.9 sec (9.27-12.13)
[2018-07-01 19:25] LABS: Alanine Aminotransferase 44 U/L (13-56); Albumin 3.3 g/dL (3.4-5.0); Anion Gap 13 (5-15); Aspartate Aminotransferase 28 U/L (15-37); BUN/Creatinine Ratio 11.8; Blood Urea Nitrogen 10 mg/dL (7-18); Calcium 8.3 mg/dL (8.5-10.1); Carbon Dioxide 18 mmol/L (21-32); Chloride 108 mmol/L (98-107); GFR African American 88 mL/min; GFR Non-African American 73 mL/min; Glucose 234 mg/dL (74-106); Lipase 62 U/L (73-393); Magnesium 1.6 mg/dL (1.6-2.6); Potassium 3.4 mmol/L (3.5-5.1); Sodium 139 mmol/L (136-145)
[2018-07-01 19:30] LABS: Alkaline Phosphatase 261 U/L (45-117); Bilirubin, Total 0.7 mg/dL (0.2-1.0)
[2018-07-01 20:57] LABS: Urine Bacteria FEW /hpf (None Seen); Urine Blood Negative /uL (Negative); Urine Budding Yeast OCCASIONAL /hpf (None Seen); Urine Hyaline Cast FEW /lpf (0 - 2); Urine Mucus FEW (None Seen); Urine WBC 35 /hpf (0 - 5)
[2018-07-01] MEDS ORDERED: cefTRIAXone 1GM/50ML D5W 50 ML IV ONE (21:30)
[2018-07-01] MEDS ORDERED: MORPHINE SULF INJ 2 MG/ML SYRINGE 1ML IV ONE (21:30)
[2018-07-01] MEDS ORDERED: methylPREDNISolone SOD SUCC 125 MG/2 ML VL IV ONE (21:30)
[2018-07-01] MEDS ORDERED: DEXTROSE (50%) 50ML SYRG IV PRN (22:15)
[2018-07-01] MEDS ORDERED: KETOROLAC TROMETH 30 MG/ML 1ML VIAL IV ONE (22:15)
[2018-07-01] MEDS ORDERED: ACETAMINOPHEN 325 MG TAB PO PRN (22:15)
[2018-07-01] MEDS: ONDANSETRON HCL 4 MG/2 ML VIAL IV PRN ×2 (23:16→23:35)
[2018-07-01 23:31] VITALS: BP 146/74
[2018-07-01 23:45] VITALS: BP 146/71
--- NOTE | 2018-07-01 23:45 | NUR ---
MS admit from ER HOWARD ANDERS admitted to unit. Patient oriented to Joana Davalos RN primary RN, unit, room, bed, and unit policies regarding patient care and visiting hours. Patient weighed by bedscale and encouraged to call if they need something. All questions and concerns addressed, patient verbalized understanding. Note: Patient placed on iso for hx mrsa nares
--- NOTE | 2018-07-02 00:10 | NUR ---
MRSA screen collected and dropped off at lab
[2018-07-02] MEDS: HYDROcodone-ACET 10/325MG TAB PO PRN ×4 (00:32→20:24)
[2018-07-02] MEDS: IPRATROPIUM BROM 0.5 MG/2.5ML INH SOL NEB SCH ×4 (01:12→19:00)
[2018-07-02] MEDS: ALBUTEROL SULF 2.5 MG/0.5ML(0.5%) NEB SOLN NEB SCH ×4 (01:12→19:00)
--- NOTE | 2018-07-02 01:45 | NUR ---
Wound Care Pics Pics taken of lower left and right abdominal and upper abdominal fold, antifungal applied, dry barrier linen placed.
[2018-07-02 05:00] VITALS: BP 146/78
[2018-07-02] MEDS: GABAPENTIN 300 MG CAP PO SCH ×3 (05:59→22:17)
[2018-07-02] MEDS: ACCU-CHEK COMFORT CURVE STRIP VI SCH ×4 (06:00→22:17)
[2018-07-02] MEDS: InsuLIN REG 1unit/0.01ml Soln (100units/ml) SC SCH ×3 (06:08→17:44)
[2018-07-02] MEDS: PANTOPRAZOLE 40 MG TAB PO SCH (06:08)
[2018-07-02 06:36] LABS: Basophils # (auto) 0 uL; Basophils % (auto) 0.1 % (0.0-2.0); Eosinophils # (auto) 0 uL; Eosinophils % (auto) 0.2 % (0.0-7.0); Hematocrit 43.1 % (36.0-46.0); Hemoglobin 14.2 g/dL (12.2-16.2); Lymphocytes # (auto) 1.3 uL; Lymphocytes % (auto) 19.4 % (10.0-50.0); Mean Corpuscular Hemoglobin 31.3 pg (28.0-32.0); Mean Corpuscular Volume 94.8 fL (80.0-100.0); Monocytes # (auto) 0.1 uL; Monocytes % (auto) 0.9 % (0.0-12.0); Neutrophils # (auto) 5.5 uL; Neutrophils % (auto) 79.4 % (37.0-80.0); Nucleated Red Blood Cells % 0.1 %; Platelet Count (auto) 171 10^3/uL (140-450); Red Blood Cells 4.55 10^6/uL (4.0-5.20); Red Cell Distribution Width 16.5 % (11.8-14.3); White Blood Cell 6.9 10^3/uL (4.4-10.8)
[2018-07-02 06:51] LABS: Calcium 7.8 mg/dL (8.5-10.1); Potassium 3.9 mmol/L (3.5-5.1)
[2018-07-02 06:55] LABS: BUN/Creatinine Ratio 20.9
--- NOTE | 2018-07-02 07:30 | NUR ---
Respiratory note: PT REFUSED 0600 SCHEDULED HHN TX. PT IS ON 3LNC, SPO2 97%, HR 76, RR 18. NO S/S OF RESPIRATORY DISTRESS. PT AWARE TO HAVE RT PAGED IF SHE CHANGES HER MIND OR SOB OCCURS. KACI ZAVALA AWARE OF PT REFUSAL.
--- NOTE | 2018-07-02 07:50 | NUR ---
OPENING SHIFT NOTE ASSUMED CARE OF PATIENT. PATIENT AWAKE AND ALERT SITTING UP IN BED. NO S/S OF DISTRESS OR SOB NOTED. PATIENT C/O PAIN 09/27. WILL ADMINISTER MEDICATIONS ORDERED. BED IN LOWEST LOCKED POSITION, CALL LIGHT WITHIN REACH. REVIEWED POC WITH PATIEN AND INSTRUCTED TO CALL FOR ASSIST NEEDED. CONTINUING TO MONITOR.
[2018-07-02] MEDS: PHENAZOPYRIDINE HCL 100 MG TAB PO SCH ×2 (08:05→11:46)
[2018-07-02 09:00] VITALS: BP 158/90
--- NOTE | 2018-07-02 11:38 | NUR ---
WOUND CARE NOTE: Wound care in to see patient per wound care request regarding "abdominal rash" that are noted present on admission. Patient came in with lower abdominal fold, groins, Lt under breast rashes/Intertriginous dermatitis. Photographs of patient's skin integrity issue are taken by bedside nurse upon admission. Patient is 58 years old female with admitting diagnosis of UTI, Pyelonephritis. Patient is resting in bed in Rm. 298A. She's awake, alert and oriented. Patient is in no stated pain at this time. She's ambulatory and able to turn and reposition self. Her current Ryan score is 18. Skin assessment done with the assistance of patient's nurse KACI Toro. Patient is obese and has large abdominal pannus and deep skin folds. Patient's lower abdominal fold and groin and L under breast has superficial intertriginous rashes. Staff doing moisture management to patient's skin folds with BID cleaning and application of Antifungal clear ointment and application of dry cloth to skin folds per MD order. Patient states that she's been using Nystatin powder to her skin folds and helps better. Communicate with patient's nurse, KACI Toro to discuss with MD when made rounds to change order to Nystatin powder per patient's request. Nurse also to clarify with MD if patient will be ok to take a shower and if not to have nurse aid give patient a bed bath then nurse to apply Antifungal clear ointment. Discussed with nurse and patient to have the sites of intertrigo cleansed first before application of ointment or Nystatin powder if MD will order. Patient and nurse verbalized understanding. No further wound care monitoring needed at this time. RECOMMENDATION: BID/PRN cleaning of L under breast, abdominal fold, groins, sacral, thighs with application of Antifungal clear ointment to intertriginous rashes, Z Guard cream to sacral/buttocks per MD order. May apply dry, clean linen to skin folds to help deshawn moisture, redistribute pressure points with pillows. Addendum: 07/02/18 at 1752 by Leyla Everett RN Amended: Links added.
--- NOTE | 2018-07-02 12:05 | NUR ---
Respiratory note: pt refused 1200 hhn tx. no s/s of respiratory distress. pt states she takes breathing tx's at home only as needed. PT on 3lnc, spo2 99%, hr 76, rr 18. RN Muna aware of refusal. Pt knows to call rt if she changes her mind or sob occurs.
[2018-07-02 13:00] VITALS: BP 146/84
[2018-07-02 17:00] VITALS: BP 158/84
--- NOTE | 2018-07-02 18:38 | NUR ---
SHORTNESS OF BREATH PATIENT C/O SOB AT THIS TIME, OXYGEN SATS 95%. CALLED RT FOR BREATHING TREATMENT AT THIS TIME.
--- NOTE | 2018-07-02 18:49 | NUR ---
END OF SHIFT NOTE PATIENT AWAKE AND ALERT SITTING UP IN BED. NO S/S OF DISTRESS OR SOB NOTED. BED IN LOWEST LOCKED POSITION, CALL LIGHT WITHIN REACH. WILL ENDORSE CARE TO TARA CLEMONS. Addendum: 07/02/18 at 1851 by SALLY DASH RN AMEND: SOB SUBSIDED AT THIS TIME.
[2018-07-02 18:58] LABS: Basophils # (auto) 0 uL; Basophils % (auto) 0.3 % (0.0-2.0); Eosinophils # (auto) 0 uL; Eosinophils % (auto) 0.1 % (0.0-7.0); Hematocrit 42.8 % (36.0-46.0); Hemoglobin 14.2 g/dL (12.2-16.2); Lymphocytes # (auto) 1.7 uL; Lymphocytes % (auto) 18.3 % (10.0-50.0); Mean Corpuscular Hemoglobin 31.4 pg (28.0-32.0); Mean Corpuscular Hgb Conc. 33.2 g/dL (32.0-36.0); Mean Corpuscular Volume 94.8 fL (80.0-100.0); Monocytes # (auto) 0.3 uL; Monocytes % (auto) 3.6 % (0.0-12.0); Neutrophils # (auto) 7.2 uL; Neutrophils % (auto) 77.7 % (37.0-80.0); Nucleated Red Blood Cells % 0.2 %; Platelet Count (auto) 205 10^3/uL (140-450); Red Blood Cells 4.51 10^6/uL (4.0-5.20); Red Cell Distribution Width 16.5 % (11.8-14.3); White Blood Cell 9.3 10^3/uL (4.4-10.8)
--- NOTE | 2018-07-02 19:10 | NUR ---
Opening Shift Note Assumed care of patient from day shift RN Muna. Pt is awake and alert and oriented x4. Pt on 2L NC, respirations even equal and unlabored. Safety maintained with bed rails upx2, locked and in lowest position with call price within reach. No S/S of distress/SOB or pain. Instructed on POC and to call for assist PRN, will continue to monitor for changes Q1hr and PRN.
[2018-07-02 22:00] VITALS: BP 161/86
[2018-07-02] MEDS ORDERED: cefTRIAXone 1GM/50ML D5W 50 ML IV SCH (22:00)
[2018-07-02] MEDS ORDERED: InsuLIN REG 1unit/0.01ml Soln (100units/ml) SC SCH (22:00)
--- NOTE | 2018-07-02 22:30 | NUR ---
BLOOD SUGAR 450 blood sugar 423, rechecked second time 450. Administered 10 units regular insulin and paged hospitalist. LAURA Rosas called back, made aware, no new orders. No s/s distress. Will continue to monitor.
--- NOTE | 2018-07-02 22:45 | NUR ---
WOUND CARE Cleansed wounds in skin fold intertrigo with water and gentle soap, pat dry, and applied antifungal ointment. Pt tolerated well, no s/s distress.
[2018-07-02] MEDS: ONDANSETRON HCL 4 MG/2 ML VIAL IV PRN (23:04)
--- NOTE | 2018-07-03 00:44 | NUR ---
PT SEEN FOR SCHEDULED MED NEB TX AT 0044. PT REFUSED HER TREATMENT AGAIN STATING THAT SHE IS STILL BREATHING FINE. NO DISTRESS NOTED. PT WAS SLEEPING WHEN ENTERING THE ROOM. HR 89 RR 16 POX 96% ON ROOM AIR. PT AWARE TO CALL FOR RT IF SHE CHANGES HER MIND OR IF ANY DISTRESS OCCURS.
[2018-07-03] MEDS: ALBUTEROL SULF 2.5 MG/0.5ML(0.5%) NEB SOLN NEB SCH ×4 (00:58→19:43)
[2018-07-03] MEDS: IPRATROPIUM BROM 0.5 MG/2.5ML INH SOL NEB SCH ×4 (00:58→19:43)
[2018-07-03] MEDS: HYDROcodone-ACET 10/325MG TAB PO PRN ×5 (02:27→23:29)
[2018-07-03 05:31] VITALS: BP 124/59
[2018-07-03] MEDS: GABAPENTIN 300 MG CAP PO SCH ×3 (06:44→21:59)
[2018-07-03] MEDS: InsuLIN REG 1unit/0.01ml Soln (100units/ml) SC SCH ×3 (06:45→17:00)
[2018-07-03] MEDS: PANTOPRAZOLE 40 MG TAB PO SCH (06:45)
[2018-07-03] MEDS: ACCU-CHEK COMFORT CURVE STRIP VI SCH ×4 (06:45→22:21)
--- NOTE | 2018-07-03 06:58 | NUR ---
Closing Shift Note Patient resting in bed, no s/s distress. Safety maintained with bed rails upx2, locked and in lowest position with call price within reach. Will endorse care to day shift KACI Knutson.
[2018-07-03 07:20] LABS: BUN/Creatinine Ratio 26.5; Calcium 7.7 mg/dL (8.5-10.1); Potassium 3.9 mmol/L (3.5-5.1)
--- NOTE | 2018-07-03 07:40 | NUR ---
Opening Shift Note Assumed care of patient, awake A&OX4. No S/S of distress/SOB or pain. Instructed on POC and to call for assist PRN, will continue to monitor for changes Q1hr and PRN.
[2018-07-03 08:00] VITALS: BP 126/65
--- NOTE | 2018-07-03 08:40 | NUR ---
Patient c/o pain at back site. Patient's back is red and warm. Patient states only new medication received was Rocephin. Notified MD. No further orders received.
[2018-07-03 08:48] VITALS: BP 126/65
[2018-07-03] MEDS: ENOXAPARIN SOD 40 MG/0.4 ML SYRINGE SC SCH (10:00)
--- NOTE | 2018-07-03 10:00 | NUR ---
Wound care: abdominal skin folds cleansed with warm water and gentle soap. Patted dry and applied antifungal ointment. Patient tolerated well.Will continue to monitor.
[2018-07-03] MEDS ORDERED: cefTRIAXone 1GM/50ML D5W 50 ML IV ONE (10:15)
[2018-07-03] MEDS: DOXYCYCLINE 100MG/250ML 250 ML IV SCH ×2 (10:38→21:58)
[2018-07-03] MEDS: INSULIN LANTUS (GLARGINE) 1 /0.01ml (100units/ml) SC SCH (10:42)
[2018-07-03 13:00] VITALS: BP 144/68
--- NOTE | 2018-07-03 13:23 | NUR ---
Respiratory note: PT REFUSING SCHEDULED MED NEB TX, STATES SHE IS FINE RIGHT NOW. PT DENIES SOB/DIFF BREATHING NO DISTRESS NOTED. HR 91 RR 18 SPO2 100% ON 2L N/C BREATH SOUNDS ARE DIMINISHED T/O. PT AND RN AWARE TO HAVE RT PAGED IF NEEDED.
--- NOTE | 2018-07-03 16:48 | NUR ---
PT REPORTS THAT SHE TRANSFERS FINE AND DOES NOT NEED P.T. IN THE HOSPITAL OR AT HOME.
[2018-07-03 17:00] VITALS: BP 144/73
--- NOTE | 2018-07-03 19:43 | NUR ---
Respiratory note: PT SEEN FOR SCHEDULED MED NEB TX AT 1943. PT REFUSED HER TREATMENT AT THIS TIME. PT STATED THAT HER BREATHING HAS BEEN FEELING GREAT AND DOESN'T NEED A TREATMENT RIGHT NOW. NO DISTRESS OR SOB NOTED. BREATH SOUNDS WERE CLEAR AND DIMINISHED BILATERALLY. HR 95 RR 18 POX 94% ON ROOM AIR. PT AWARE TO CALL FOR RT IS ANY DISTRESS OCCURS.
[2018-07-03 22:03] VITALS: BP 157/73
[2018-07-04] MEDS: IPRATROPIUM BROM 0.5 MG/2.5ML INH SOL NEB SCH ×3 (00:44→11:48)
[2018-07-04] MEDS: ALBUTEROL SULF 2.5 MG/0.5ML(0.5%) NEB SOLN NEB SCH ×3 (00:44→11:48)
[2018-07-04 05:28] VITALS: BP 145/74
[2018-07-04] MEDS: GABAPENTIN 300 MG CAP PO SCH ×2 (05:39→14:09)
[2018-07-04] MEDS: HYDROcodone-ACET 10/325MG TAB PO PRN ×3 (05:39→14:10)
[2018-07-04] MEDS: ACCU-CHEK COMFORT CURVE STRIP VI SCH ×3 (06:23→17:00)
[2018-07-04] MEDS: InsuLIN REG 1unit/0.01ml Soln (100units/ml) SC SCH ×3 (06:23→17:00)
--- NOTE | 2018-07-04 07:35 | NUR ---
Opening Shift Note Assumed care of patient, comfortably sleeping No S/S of distress/SOB or pain. Instructed on POC and to call for assist PRN, will continue to monitor for changes Q1hr and PRN.
[2018-07-04 08:00] VITALS: BP 158/50
[2018-07-04 08:59] LABS: Basophils # (auto) 0 uL; Basophils % (auto) 0.4 % (0.0-2.0); Eosinophils # (auto) 0.2 uL; Eosinophils % (auto) 2.6 % (0.0-7.0); Hematocrit 41.3 % (36.0-46.0); Hemoglobin 13.4 g/dL (12.2-16.2); Lymphocytes # (auto) 2.9 uL; Mean Corpuscular Hemoglobin 30.8 pg (28.0-32.0); Mean Corpuscular Hgb Conc. 32.6 g/dL (32.0-36.0); Mean Corpuscular Volume 94.6 fL (80.0-100.0); Monocytes # (auto) 0.4 uL; Monocytes % (auto) 4.6 % (0.0-12.0); Neutrophils # (auto) 4.5 uL; Neutrophils % (auto) 56.4 % (37.0-80.0); Nucleated Red Blood Cells % 0.2 %; Platelet Count (auto) 161 10^3/uL (140-450); Red Blood Cells 4.36 10^6/uL (4.0-5.20); Red Cell Distribution Width 16.3 % (11.8-14.3)
[2018-07-04 09:00] VITALS: BP 155/81
[2018-07-04] MEDS ORDERED: cefTRIAXone 1GM/50ML D5W 50 ML IV SCH (09:00)
[2018-07-04 09:01] LABS: Calcium 8.2 mg/dL (8.5-10.1); Potassium 3.8 mmol/L (3.5-5.1)
[2018-07-04 09:04] LABS: BUN/Creatinine Ratio 16.1
[2018-07-04] MEDS: DOXYCYCLINE 100MG/250ML 250 ML IV SCH (09:43)
[2018-07-04] MEDS: PANTOPRAZOLE 40 MG TAB PO SCH (09:43)
[2018-07-04] MEDS: ENOXAPARIN SOD 40 MG/0.4 ML SYRINGE SC SCH (09:59)
[2018-07-04] MEDS: INSULIN LANTUS (GLARGINE) 1 /0.01ml (100units/ml) SC SCH (10:00)
--- NOTE | 2018-07-04 10:00 | NUR ---
wound acre: Cleansed abdominal folds with warm water and mild soap, patted dry and applied antifungal ointment. Patient tolerated well. Addendum: 07/04/18 at 1911 by Ariana Qureshi RN wound care*
[2018-07-04 13:00] VITALS: BP 132/69
[2018-07-04 14:21] VITALS: BP 132/69
[2018-07-04 17:00] VITALS: BP 155/86
--- NOTE | 2018-07-04 17:10 | NUR ---
Discharge instructions given as ordered. Encourage to follow up with PMD as instructed. All questions and concerns addressed. Patient verbalized understanding. IV removed with catheter intact, pressure dressing applied. Patient taken to vehicle via wheelchair with all personal belongings, accompanied by staff and family member. No distress noted at time of departure.
== END 2018-07-04 17:20 | disposition home or self-care (01) | DRG 140 ==
LOC: ER 18:08 → OVERFLOW 22:24 → MERGE 22:24 → WEST WING 23:26
PROVIDERS: ADMIT Nurse Practitioner Family; ATTEND Hospitalist
DX: J44.1 Chronic obstructive pulmonary disease with (acute) exacerbation (principal); E66.01 Morbid (severe) obesity due to excess calories; N10 Acute pyelonephritis; E11.65 Type 2 diabetes mellitus with hyperglycemia; Z99.81 Dependence on supplemental oxygen; Z68.44 Body mass index [BMI] 60.0-69.9, adult; I10 Essential (primary) hypertension; E78.5 Hyperlipidemia, unspecified; B95.62 Methicillin resistant Staphylococcus aureus infection as the cause of diseases classified elsewhere; I25.10 Atherosclerotic heart disease of native coronary artery without angina pectoris; Z87.440 Personal history of urinary (tract) infections; Z79.4 Long term (current) use of insulin; Z90.49 Acquired absence of other specified parts of digestive tract; Z88.1 Allergy status to other antibiotic agents; Z88.8 Allergy status to other drugs, medicaments and biological substances; Z71.3 Dietary counseling and surveillance
CPT/HCPCS: 36415; 71045; 74176; 80048; 80053; 81001; 82962; 83036; 83690; 83735; 84484; 85025; 85610; 85730; 87081; 87086; 93005; 94640; 94761; 96361; 96365; 96375; A6257; G0378; J0696; J1815; J1885; J2405; J3490

== ENCOUNTER 2018-07-14 00:08 | Emergency (ER) | payer MEDICAID ==
[~2018-07-14] VITALS: Ht 149.9 cm; Wt 113.4 kg
[2018-07-14] MEDS ORDERED: ALBUTEROL SULF 2.5 MG/0.5ML(0.5%) NEB SOLN HHN STA (00:10)
[2018-07-14] MEDS ORDERED: IPRATROPIUM BROM 0.5 MG/2.5ML INH SOL NEB ONE (00:15)
[2018-07-14 00:48] LABS: Basophils # (auto) 0.1 uL; Basophils % (auto) 0.6 % (0.0-2.0); Eosinophils # (auto) 0.3 uL; Eosinophils % (auto) 2.8 % (0.0-7.0); Hemoglobin 14.9 g/dL (12.2-16.2); Lymphocytes # (auto) 3.4 uL; Lymphocytes % (auto) 34.8 % (10.0-50.0); Mean Corpuscular Hemoglobin 31.5 pg (28.0-32.0); Mean Corpuscular Hgb Conc. 33.8 g/dL (32.0-36.0); Monocytes # (auto) 0.8 uL; Monocytes % (auto) 8.3 % (0.0-12.0); Neutrophils # (auto) 5.2 uL; Neutrophils % (auto) 53.5 % (37.0-80.0); Platelet Count (auto) 253 10^3/uL (140-450); Red Blood Cells 4.73 10^6/uL (4.0-5.20); White Blood Cell 9.8 10^3/uL (4.4-10.8)
[2018-07-14 00:59] LABS: Chloride 105 mmol/L (98-107); Potassium 4.3 mmol/L (3.5-5.1); Sodium 136 mmol/L (136-145)
[2018-07-14 01:03] LABS: Albumin 3.4 g/dL (3.4-5.0); Anion Gap 10 (5-15); Blood Urea Nitrogen 8 mg/dL (7-18); Calcium 9.4 mg/dL (8.5-10.1); Carbon Dioxide 21 mmol/L (21-32); Glucose 286 mg/dL (74-106)
[2018-07-14 01:08] LABS: Alanine Aminotransferase 85 U/L (13-56); Alkaline Phosphatase 277 U/L (45-117); Aspartate Aminotransferase 70 U/L (15-37); Bilirubin, Total 0.6 mg/dL (0.2-1.0); GFR African American 95 mL/min; GFR Non-African American 78 mL/min; Total Protein 8.6 g/dL (6.4-8.2)
[2018-07-14] MEDS ORDERED: IBUPROFEN 800 MG TAB PO ONE (01:30)
[2018-07-14] MEDS ORDERED: methylPREDNISolone SOD SUCC 125 MG/2 ML VL IV ONE (01:30)
[2018-07-14] MEDS ORDERED: HYDROcodone-ACET 10/325MG TAB PO ONE (03:30)
[2018-07-14 05:30] VITALS: BP 148/89
== END 2018-07-14 05:16 | disposition home or self-care (01) ==
LOC: ER 00:11
DX: J44.1 Chronic obstructive pulmonary disease with (acute) exacerbation (principal); M60.9 Myositis, unspecified; M54.5 Low back pain; M54.6 Pain in thoracic spine; E11.22 Type 2 diabetes mellitus with diabetic chronic kidney disease; I13.0 Hypertensive heart and chronic kidney disease with heart failure and stage 1 through stage 4 chronic kidney disease, or unspecified chronic kidney disease; N18.9 Chronic kidney disease, unspecified; I50.9 Heart failure, unspecified; E78.5 Hyperlipidemia, unspecified; E07.9 Disorder of thyroid, unspecified; I20.9 Angina pectoris, unspecified; Z90.49 Acquired absence of other specified parts of digestive tract
CPT/HCPCS: 36415; 71045; 80053; 80320; 83880; 84484; 85025; 93005; 94640; 94761; 96374; 99284; J2930; J7611; J7644